=== PATIENT | female | born 1975 ===

== ENCOUNTER 2017-08-13 10:52 | Emergency (ER) | payer SELFPAY ==
[2017-08-13 10:52] VITALS: BMI 26.9
--- NOTE | 2017-08-13 12:00 | C.PDOC ---
History Of Present Illness 41 year old female presents to the ED complaining of abdominal pain and flank pain. The patient reports that she was seen at clinic a week ago for dysuria and abdominal pain. She was diagnosed with a UTI and prescribed macrobid. She has been compliant and has one more day on antibiotic. Patient states that dysuria has resolved however she now complains of bilateral flank pain. She denies fevers, chills, or vomiting. Time Seen by Provider: 08/13/17 11:16 Chief Complaint (Nursing): Back Pain History Per: Patient History/Exam Limitations: no limitations Onset/Duration Of Symptoms: Days Current Symptoms Are (Timing): Still Present Past Medical History Reviewed: Historical Data, Nursing Documentation, Vital Signs Vital Signs: Last Vital Signs Temp 97.8 F 08/13/17 12:24 Pulse 53 L 08/13/17 12:24 Resp 18 08/13/17 12:24 BP 117/59 L 08/13/17 12:24 Pulse Ox 100 08/13/17 12:45 - Medical History PMH: Gastritis, Gall Bladder Disease, Hepatitis (B), Pneumonia Surgical History: Cholecystectomy - [facility] Procedures D & C POST DELIVERY (09/26/13) INJECT/INFUSE NEC (11/14/14) Family History: States: Diabetes - Social History Hx Tobacco Use: No Hx Alcohol Use: No Hx Substance Use: No - Immunization History Hx Tetanus Toxoid Vaccination: No Hx Influenza Vaccination: No Hx Pneumococcal Vaccination: No Review Of Systems Constitutional: Negative for: Fever, Chills Cardiovascular: Negative for: Chest Pain, Palpitations Respiratory: Negative for: Cough, Shortness of Breath Gastrointestinal: Negative for: Vomiting Genitourinary: Positive for: Dysuria (resolved). Negative for: Incontinence, Hematuria, Vaginal Bleeding Musculoskeletal: Positive for: Back Pain Skin: Negative for: Rash Neurological: Negative for: Numbness, Headache, Dizziness Physical Exam - Physical Exam Appears: Non-toxic, No Acute Distress Skin: Normal Color, Warm, Dry Head: Atraumatic, Normacephalic Eye(s): bilateral: Normal Inspection, EOMI Neck: Normal ROM Cardiovascular: Rhythm Regular (Rate Regular) Respiratory: Normal Breath Sounds, No Rales, No Rhonchi, No Wheezing Gastrointestinal/Abdominal: Normal Exam, Soft, No Tenderness, No Guarding, No Rebound Back: No CVA Tenderness Extremity: Bilateral: Atraumatic, Normal Color And Temperature, Normal ROM Neurological/Psych: Oriented x3, Normal Speech Gait: Steady ED Course And Treatment O2 Sat by Pulse Oximetry: 100 Pulse Ox Interpretation: Normal Medical Decision Making Medical Decision Making: Impression: back pain, urinary symptoms Plan: * UA * UHCG * Urine Cx * toradol IM Progress: UA reviewed showing no UTI Patient remained afebrile and on re-evaluation she states pain has improved. No signs of pyelonephritis. Back pain may muscular related. Advise patient to take NSAID for pain and to follow up with clinic. Disposition Counseled Patient/Family Regarding: Diagnosis, Need For Followup, Rx Given - Disposition Disposition: HOME/ ROUTINE Disposition Time: 12:40 Condition: GOOD Additional Instructions: Medel anlisis de orina fue normal. Por favor, tome ibuprofeno segn sea necesario para el dolor. Sigue a tu mdico Prescriptions: Ibuprofen [Motrin] 600 mg PO Q8 #30 tab Instructions: Acute Low Back Pain (DC) Forms: [facility] (Armenian) Print Language: TOGOLESE - POA Present On Arrival: None - Clinical Impression Clinical Impression: Low back pain - Scribe Statement The provider has reviewed the documentation as recorded by the Scribe Toribio Johnson
[2017-08-13 12:02] LABS: URINE BACTERIA RARE (<OCC); URINE BILIRUBIN NEGATIVE (NEGATIVE); URINE BLOOD NEGATIVE (NEGATIVE); URINE COLOR Yellow (YELLOW); URINE GLUCOSE (UA) NORMAL (Normal); URINE KETONE NEGATIVE (NEGATIVE); URINE LEUKOCYTE ESTERASE NEG Leu/uL (Negative); URINE PROTEIN NEGATIVE (NEGATIVE); URINE UROBILINOGEN NORMAL mg/dL (0.2-1.0); WBC URINE < 1 /hpf (0-5)
[2017-08-13 12:25] VITALS: BP 117/59; PULSE 53; RESP 18; TEMP 97.8
[2017-08-13 12:31] VITALS: O2SAT 100
== END 2017-08-13 12:41 | disposition home or self-care (01) ==
LOC: C.ER 10:52
DX: M54.5 Low back pain (principal)
CPT/HCPCS: 81001; 84703; 87086; 96372; 99284; J1885

== ENCOUNTER 2018-01-17 20:22 | Emergency (ER) | payer SELFPAY ==
[2018-01-17 20:23] VITALS: BMI 26.9
[2018-01-17 20:45] VITALS: BP 118/66; PULSE 73; RESP 20; TEMP 97.8; O2SAT 99
--- NOTE | 2018-01-17 21:25 | C.PDOC ---
History Of Present Illness 42 y/o c/o of cough w/whitish-greeen sputum for 2 weeks with intermittent fevers to 102 for last 2 weeks. Pt has seen her PMD, who told her that she had a viral syndrome. Pt reports that she is still concerned because she has been coughing too much, worse at night. Denies abdominal pain, nausea, vomiting, and diarrhea. pt with occasional nasal discharge. HPI: Influenza Time Seen by Provider: 01/17/18 20:50 Chief Complaint: Cough, Cold, Congestion History Per: Patient Exam Limitations: no limitations Onset/Duration Of Symptoms: Days Symptoms include: fever, cough, nasal congestion. denies: vomiting, diarrhea Risk factors for flu complications: No: adult > 65 years, chronic lung disease Past Medical History Reviewed: Historical Data, Nursing Documentation, Vital Signs Vital Signs: Last Vital Signs Temp 97.8 F 01/17/18 20:40 Pulse 73 01/17/18 20:40 Resp 20 01/17/18 20:40 BP 118/66 01/17/18 20:40 Pulse Ox 99 01/17/18 20:40 - Medical History PMH: Gastritis, Gall Bladder Disease, Hepatitis (B), Pneumonia Surgical History: Cholecystectomy, Endoscopy - [facility] Procedures D & C POST DELIVERY (09/26/13) INJECT/INFUSE NEC (11/14/14) Family History: States: Diabetes - Social History Hx Tobacco Use: No Hx Alcohol Use: No Hx Substance Use: No - Immunization History Hx Tetanus Toxoid Vaccination: No Hx Influenza Vaccination: No Hx Pneumococcal Vaccination: No Review Of Systems Except As Marked, All Systems Reviewed And Found Negative. Constitutional: Positive for: Fever. Negative for: Chills Respiratory: Positive for: Cough Gastrointestinal: Negative for: Nausea, Vomiting, Abdominal Pain, Diarrhea Physical Exam - Physical Exam Appears: Non-toxic, No Acute Distress Skin: Warm, Dry Head: Atraumatic, Normacephalic Eye(s): bilateral: Normal Inspection Nose: Normal Oral Mucosa: Moist Throat: Normal, No Erythema, No Exudate Neck: Supple Chest: Symmetrical Cardiovascular: Rhythm Regular Respiratory: Normal Breath Sounds, No Rales, No Rhonchi, No Wheezing Neurological/Psych: Oriented x3, Normal Speech, Normal Motor, Normal Sensation Medical Decision Making Medical Decision Making: Plan: --CXR 949 pm no infiltrate noted on cxr. will d/c with benadryl and tessalon. pt has f/u appt with pmd in 3 days. - ECG O2 Sat by Pulse Oximetry: 99 (RA) Pulse Ox Interpretation: Normal Disposition - Disposition Referrals: Mely Delgado APN [Advanced Practice Nurse] - Disposition: HOME/ ROUTINE Disposition Time: 21:50 Condition: GOOD Additional Instructions: Please take Benadryl at bedtime to decrease nasal secretions and help reduce cough. Tessalon perles for cough as prescribed. Drink increased fluids, stay welll hydrated. Follow up with Dr Delgado in 3 days as scheduled. Prescriptions: Benzonatate [Tessalon Perles] 100 mg PO TID #20 sgl DiphenhydrAMINE [Benadryl] 25 mg PO HS #20 cap Instructions: Upper Respiratory Infection (ED) Forms: [facility] (Amharic), General Discharge Instructions - Clinical Impression Clinical Impression: Upper respiratory infection - PA / MEDICAL LAB TECHNICIAN / Resident Statement MD/DO has reviewed & agrees with the documentation as recorded. - Scribe Statement The provider has reviewed the documentation as recorded by the Darion Hernandez Provider Attestation All medical record entries made by the Scribe were at my direction and personally dictated by me. I have reviewed the chart and agree that the record accurately reflects my personal performance of the history, physical exam, medical decision making, and the department course for this patient. I have also personally directed, reviewed, and agree with the discharge instructions and disposition.
--- NOTE | 2018-01-18 08:40 | RAD ---
HISTORY: COMPARISON: 11/26/2016. TECHNIQUE: Chest PA and lateral FINDINGS: LINES AND TUBES: None. LUNG AND PLEURA: The lungs are well inflated. There are diffuse reticular nodular opacities in both lungs. No focal consolidation. HEART AND MEDIASTINUM: The heart is not enlarged. The hilar and mediastinal contours are within normal limits. SKELETAL STRUCTURES: The bony structures are within normal limits for the patient's age. VISUALIZED UPPER ABDOMEN: Normal. OTHER FINDINGS: None. IMPRESSION: Findings are most compatible with reactive small airway disease/ viral/ atypical pneumonitis. No lobar pneumonia.
== END 2018-01-17 22:00 | disposition home or self-care (01) ==
LOC: C.ER 20:22
DX: J06.9 Acute upper respiratory infection, unspecified (principal)